=== PATIENT | male | born 1955 | race Caucasian/White ===

== ENCOUNTER → 2020-08-24 11:03 | Outpatient (CLI) | payer BC, SELFPAY ==
--- NOTE | 2020-08-24 | DI.RAD.S_ITS ---
PROCEDURE: XR CALCANEOUS LT MIN 2V INDICATIONS: PAIN TECHNIQUE: Two views of the calcaneus were acquired. COMPARISON: None. FINDINGS: Bones: No fractures or dislocations. No suspicious bony lesions. Soft tissues: No suspicious calcifications. Achilles tendon appears normal. IMPRESSION: A small amount of calcification is present within the Achilles tendon just above the insertion on the posterior calcaneus, consistent with calcific tendonitis. Dictated by: Ben Canas M.D. on 08/24/2020 at 14:16 Approved by: Ben Canas M.D. on 08/24/2020 at 14:16
--- NOTE | 2020-08-24 | DI.RAD.S_ITS ---
PROCEDURE: XR ANKLE RT MIN 3V INDICATIONS: PAIN TECHNIQUE: 3 views of the ankle were acquired. COMPARISON: [facility], CR, XR CALCANEOUS LT MIN 2V, 08/24/2020, 11:16. FINDINGS: Bones: No fractures or dislocations. Ankle mortise is normally aligned. No suspicious bony lesions. Soft tissues: No tibiotalar joint effusion. Achilles tendon appears normal. IMPRESSION: No trauma found. 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 No joint effusion or evidence of malalignment suggestive of ligamentous injury is seen. Dictated by: Ben Canas M.D. on 08/24/2020 at 14:16 Approved by: Ben Canas M.D. on 08/24/2020 at 14:17
== END ==
PROVIDERS: PCP Internal Medicine; Referring Provider Nurse Practitioner Family; Visit Provider Nurse Practitioner Family
DX: M25.571 Pain in right ankle and joints of right foot (principal); M79.672 Pain in left foot
CPT/HCPCS: 73610; 73650

== ENCOUNTER → 2023-12-07 08:33 | Outpatient (CLI) | payer BC, SELFPAY ==
--- NOTE | 2023-12-07 08:35 | DI.US.S_ITS ---
PROCEDURE: US ABD AORTA ANEURYSM SCREEN INDICATIONS: AAA SCREENING TECHNIQUE: Real time scanning was performed of the aorta and iliac arteries, with image documentation. COMPARISON: None. FINDINGS: Aorta: Proximal aortic diameter measures 2 cm. Mid-aorta measures 2.1 cm. Distal aortic diameter is 1.8 cm. Iliac arteries: Right common iliac artery measures 1.1 cm. Left common iliac artery measures 1.1 cm. IMPRESSION: Negative for aneurysm. Dictated by: Mario Lawrence M.D. on 12/07/2023 at 9:29 Approved by: Mario Lawrence M.D. on 12/07/2023 at 9:29
== END ==
LOC: US 08:33
PROVIDERS: PCP Internal Medicine; Referring Provider Internal Medicine; Visit Provider Internal Medicine
DX: Z13.6 Encounter for screening for cardiovascular disorders (principal)
CPT/HCPCS: 76706

== ENCOUNTER → 2024-06-16 07:58 | Outpatient (CLI) | payer BC, SELFPAY ==
--- NOTE | 2024-06-16 | DI.ECHO.S_ITS ---
[place]+ [facility] : : [address] : : [place] : : [id number] : : Phone: [phone] Echocardiogram Report + + :Name: KAYLA ESPINAL Study Date: 06/16/2024 Height: 71 in : :[facility] ReadingLocation: Weight: 210 lb : : Gender: Male BSA: 2.2 m2 : :: 1955 Age: 68 yrs BP: 151/78 mmHg: :Reason For Study: NEWLY RECOGNIZED HEART MURMUR : :Ordering Physician: MC, : :OLAF Performed By: Reji Godinez : :Referring: OLAF BENTLEY : + + Interpretation Summary Mild concentric left ventricular hypertrophy with ejection fraction 60-65%. The left atrium is mildly dilated. The aortic valve is mildly calcified. There is moderate aortic regurgitation. The ascending aorta is mild-moderately enlarged (4.4 cm). Procedure: A two-dimensional transthoracic echocardiogram with color flow and Doppler was performed. The study quality was technically good. There is no prior echocardiogram noted for this patient. The patient was in normal sinus rhythm during the exam. Left Ventricle: The left ventricle is normal in size. There is mild concentric left ventricular hypertrophy. There is no ventricular septal defect visualized. The ejection fraction is estimated to be 60-65%. There are no focal wall motion abnormalities. Diastolic function could not be accurately assessed due to confounding valvular disease. Right Ventricle: The right ventricle is normal in size and function. Atria: The left atrium is mildly dilated. Right atrial size is normal. There is no Doppler evidence for an interatrial shunt. Mitral Valve: The mitral valve leaflets appear mildly thickened, but open well. There is trace mitral regurgitation. Aortic Valve: The aortic valve is trileaflet. The aortic valve opens well. The aortic valve is mildly calcified. There is moderate aortic regurgitation. Tricuspid Valve: The tricuspid valve is normal in structure and function. No tricuspid regurgitation. Pulmonic Valve: The pulmonic valve is normal in structure and function. There is trace pulmonic regurgitation. Great Vessels: The aortic root is mildly dilated. The ascending aorta is mild-moderately enlarged. The pulmonary artery is normal size. The inferior vena cava was not visualized. Pericardium/ Pleura There is no pericardial effusion. There is no pleural effusion. MMode/2D Measurements & Calculations LVIDd: 5.4 cm LVOT diam: 2.2 cm LVIDs: 3.7 cm Ao root diam: 4.1 cm FS: 31.1 % asc Aorta Diam: 4.4 cm EPSS: 0.92 cm Ao Arch Diam (Prox Trans): 2.3 cm IVSd: 1.2 cm LVPWd: 1.1 cm LV bardales. diameter/BSA (cm/m^2): 2.5 LV sys. diameter/BSA (cm/m^2): 1.7 LA A2 area: 21.2 cm2 RA long axis: 5.4 cm LA A4 area: 22.5 cm2 RA area: 13.4 cm2 LA length (vol): 5.7 cm RA vol: 28.2 ml LA vol: 70.4 ml RA : 13.1 ml/m2 LA vol index: 32.7 ml/m2 RVD1 (basal): 3.7 cm RVD2 (mid): 3.2 cm TAPSE: 2.4 cm Doppler Measurements & Calculations Ao V2 max: 196.3 cm/sec LVOT Max Te: 135.8 cm/sec Ao V2 mean: 122.1 cm/sec LV V1 max P.4 mmHg Ao max P.4 mmHg LV V1 VTI: 32.9 cm Ao mean P.1 mmHg RODERICK(I,D): 3.3 cm2 Ao V2 VTI: 39.5 cm RODERICK(V,D): 2.7 cm2 sev ratio: 0.83 RODERICK indexed to BSA (cm^2/m^2): 1.5 AI P1/2t: 319.1 msec AI dec slope: 492.5 cm/sec2 MV E max te: 66.6 cm/sec PA V2 max: 72.1 cm/sec MV A max te: 86.4 cm/sec PA V2 mean: 43.5 cm/sec MV E/A: 0.77 PA mean P.91 mmHg Med Peak E' Te: 5.9 cm/sec PA pr(Accel): 19.1 mmHg E/E' med: 11.4 Lat Peak E' Te: 6.4 cm/sec E/E' lat: 10.4 E/e' average: 10.9 MV dec time: 0.24 sec SV(LVOT): 130.4 ml Electronically signed by: Ludin Higginbotham on Reading Physician:06/16/2024 01:12 PM
== END ==
PROVIDERS: PCP Internal Medicine; Referring Provider Internal Medicine; Visit Provider Internal Medicine
DX: I35.1 Nonrheumatic aortic (valve) insufficiency (principal); I77.810 Thoracic aortic ectasia; I77.89 Other specified disorders of arteries and arterioles; R01.1 Cardiac murmur, unspecified
CPT/HCPCS: 93306

== ENCOUNTER 2024-06-17 09:00 | Day surgery (SDC) | payer BC, SELFPAY ==
[2024-06-17] VITALS (9 sets, daily range): BP systolic 137–171; BP diastolic 75–90; PULSE 48–86; RESP 12–20; TEMP 36.3–36.6; O2SAT 94–99
--- NOTE | 2024-06-17 | PATH_ITS ---
[facility] Accession Number: [id number] No. of containers..02 Tissue . 01 Material submitted: . PART A: colon - TRANSVERSE COLON POLYP #1 PART B: colon - TRANSVERSE COLON POLYP #2 . 01 Diagnosis: A. TRANSVERSE COLON POLYP, BIOPSY: Tubular adenoma. . B. TRANSVERSE COLON POLYP, BIOPSY: Tubular adenoma. MRV 06/18/2024 1459 Local . 01 Electronically signed: . Sapna Pérez MD, Pathologist NPI- [id number] . 01 Gross description: . Part A: TRANSVERSE COLON POLYP #1: Received in formalin is 1 fragment(s) of rothman, soft tissue measuring 0.5 x 0.3 x 0.3 cm submitted entirely in 1 cassette(s) Part B: TRANSVERSE COLON POLYP #2: Received in formalin are 3 fragment(s) of rothman, soft tissue measuring 0.2 x 0.1 x 0.1 cm to 0.3 x 0.3 x 0.3 cm submitted entirely in 1 cassette(s) /MANE 06/17/2024 2355 Local . 01 Pathologist provided ICD-10: D12.3 . 01 CPT . 890378, [id number] Specimen Comment: A courtesy copy of this report has been sent to [phone] Performed at: [address] [facility] [address], [place], [place] [id number] MD Vikas Hobbs MD Phone: [phone]
--- NOTE | 2024-06-17 09:32 | PM.HP.1 ---
History of Present Illness History of Present Illness Date Patient Seen: 06/17/24 Time Patient Seen: 09:32 Chief complaint: Dx Colonoscopy w/pos bx Narrative: 68-year-old man here for diagnostic colonoscopy result of positive fecal immunochemical test. [facility] Medical History Broken arm Hypertension Social History marital status: details: Pt. was adopted. household members: spouse lives independently: Yes occupational status: previously employed Smoking Status: Former smoker alcohol intake: current substance use type: does not use Meds Home Medications and Allergies Home Medications Medication Instructions Recorded Confirmed Type atorvastatin 10 mg tablet 10 mg PO DAILY 06/05/24 06/17/24 History lisinopril 10 mg tablet 10 mg PO DAILY 06/05/24 06/17/24 History sildenafil 25 mg tablet 25 mg PO DAILY PRN Scheduled 06/05/24 06/17/24 History sodium,potassium,mag sulfates 17.5 See Rx Instructions PO .COMPLEX 06/09/24 Rx gram-3.13 gram-1.6 gram oral soln #354 mL (Suprep Bowel Prep Kit) Allergies Allergy/AdvReac Type Severity Reaction Status Date / Time No Known Drug Allergies Allergy Unverified 06/05/24 15:36 Exam Vital Signs (past 8 hours): - 06/17/24 09:16 Temperature 97.3 F L Pulse Rate 86 Respiratory Rate 18 Blood Pressure 158/84 H Pulse Oximetry 98 Oxygen Delivery Method Room Air Oxygen Delivery Method Room Air Assessment & Plan Assessment and plan (1) Positive FIT (fecal immunochemical test): Status: Acute Assessment & Plan narrative: Diagnostic colonoscopy indicated. Technical details were discussed. Risks, benefits, alternatives explained. Risks including but not limited to myocardial infarction, aspiration, bleeding, pain, missed lesion, incomplete examination, need for further radiographic studies, intestinal injury, and need for major abdominal surgery were discussed. All questions were answered to their satisfaction, and they are in agreement with this plan. Time-Based Coding :: [TOTAL MINUTES] spent with patient and on the chart (including review of chart, obtaining history, exam, reviewing outside data, placing orders, documenting exam and treatment plan, and counseling patient) on [DATE].
--- NOTE | 2024-06-17 09:59 | P.OP.COLON_ITS ---
Operative Date/Time/Diagnoses Date of procedure: 06/17/24 Time of procedure: 10:00 Pre-op diagnosis: Positive fecal immunochemical test Post-op diagnosis: other (Colonic polyps x2) Procedure & Clinicians Study performed: Diagnostic colonoscopy and polypectomy with ink injection. Same procedure as scheduled: Yes Indications: Positive fecal immunochemical test Surgeon: Ezequiel Rogers Procedure Notes Procedure in detail: The history and physical was performed/updated and the patient is ASA class is 2. The procedure was discussed in detail with the patient. Potential risks complications including infection, bleeding, missed diagnosis, perforation, need for surgery, and were explained. Their questions were answered and informed consent was obtained. Patient was brought to the procedure room and placed standard monitoring equipm ent. The patient's vital signs were monitored continuously throughout the entire procedure. Prior to starting time-out was performed. The patient was placed in the left lateral recumbent position. Procedural sedation was administered by anesthesia. Examination began with a thorough inspection of the perianal area there was no evidence of fissures, fistulae, external hemorrhoids or cutaneous malignancy. The colonoscopy scope was then placed into the anal canal and was advanced to the cecum, which was identified by the ileocecal valve, the appendiceal orifice and the confluence of the taenia. The scope was then slowly withdrawn examining colon thoroughly in all directions, irrigating it of any residual stool. The scope was retroflexed within the rectum The patient tolerated the procedure well. They will be discharged once criteria are met. The prep was of good/excellent quality. The withdrawl time was 7 minutes. FINDINGS * Transverse colon there were 2 polyps within the transverse colon. Polyp 1. Was proximally 8 mm and removed in entirety with the biopsy forceps. Transverse polyp 2. Was approximately 1 cm in maximal diameter removed in entirety with cold snare. The appearance of polyp 2. Was slightly concerning and it was therefore marked with 2 mL of tattoo into the submucosa. * Internal hemorrhoids Specimen(s): other (Transverse colon polyp 1 and 2) Impression: Colonic polyps x2 Post-procedure Plan for aftercare: Follow-up is dependent on pathology findings Disposition: same day surgery
--- NOTE | 2024-06-17 09:59 | PM.PREOP ---
Pre-operative Note Interval Note History & Physical reviewed/Exam performed by Physician: Yes Changes to H&P: No
[2024-06-17] MEDS: LACTATED RINGERS 1,000 ML 1000 ML IV (11:07)
--- NOTE | 2024-06-17 11:25 | SUR.PHASEI ---
Symone SKIMMER to bedside. Updated on patient bradycardia 48-50. 1L LR infusing now. HR up to 60 BR.
== END 2024-06-17 11:45 | disposition home or self-care (01) ==
PROVIDERS: PCP Internal Medicine; Referring Provider Surgery; Visit Provider Surgery
PROC: 0DJD8ZZ Inspection of Lower Intestinal Tract, Via Natural or Artificial Opening Endoscopic (ICD-10-PCS; CPT 45378; principal; 2024-06-17 10:00)
DX: Z12.11 Encounter for screening for malignant neoplasm of colon (principal); R19.5 Other fecal abnormalities; K64.8 Other hemorrhoids; D12.3 Benign neoplasm of transverse colon
CPT/HCPCS: 45381; 45385; 45380; J2704

== ENCOUNTER → 2025-06-16 07:57 | Outpatient (CLI) | payer BC, SELFPAY | LOC: ECHO 07:58 | PROVIDERS: PCP Registered Nurse; Referring Provider Registered Nurse; Visit Provider Registered Nurse | DX: I35.1 Nonrheumatic aortic (valve) insufficiency (principal); R01.1 Cardiac murmur, unspecified; I77.89 Other specified disorders of arteries and arterioles; I77.810 Thoracic aortic ectasia | CPT/HCPCS: 93306 ==